=== PATIENT | male | born 1960 | race Caucasian/White ===

== ENCOUNTER 2022-02-07 20:57 | Emergency (ER) | payer MEDICARE, MEDICAID | END 2022-02-08 00:38 | disposition home or self-care (01) | LOC: JD.ED 20:57 | DX: G40.909 Epilepsy, unspecified, not intractable, without status epilepticus (principal); E11.9 Type 2 diabetes mellitus without complications; Z86.73 Personal history of transient ischemic attack (TIA), and cerebral infarction without residual deficits; Z79.899 Other long term (current) drug therapy; Z79.4 Long term (current) use of insulin | CPT/HCPCS: 36415; 70450; 70450-26; 80053; 82550; 83735; 84100; 85025; 99284 ==